=== PATIENT | male | born 1995 | race African-American/Black ===

== ENCOUNTER 2017-03-25 14:23 | Emergency (ER) | payer OTHER ==
[~2017-03-25] VITALS: Ht 177.8 cm; Wt 77.1 kg
[2017-03-25] MEDS ORDERED: Lidocaine 1% 10mg/ml/Epi 0.005mg/ml 30ml vial INJ ONE (14:45)
--- NOTE | 2017-03-25 15:11 | Diagnostic Imaging Report ---
Indication: Reason For Exam: PAIN Technique: 2 views of the left tibia and fibula Comparison: none Findings: No acute fractures. No dislocations. The joint spaces are preserved. No radiopaque foreign body Impression: Negative
[2017-03-25] MEDS ORDERED: Bacitracin Oint UD TOPIC ONE ×2 (15:13→15:15)
[2017-03-25 15:15] VITALS: BP 124/80
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
== END 2017-03-25 15:20 | disposition home or self-care (01) ==
LOC: EDBD 14:23 → EMR 14:35
DX: S81.812A Laceration without foreign body, left lower leg, initial encounter (principal); V18.4XXA Pedal cycle driver injured in noncollision transport accident in traffic accident, initial encounter; Y93.55 Activity, bike riding; Y92.89 Other specified places as the place of occurrence of the external cause
CPT/HCPCS: 99283; 99284